=== PATIENT | female | born 1955 | race Caucasian/White ===

== ENCOUNTER 2018-02-02 14:02 | Outpatient (CLI) | payer OTHER, SELFPAY ==
[2018-02-02 14:30] LABS: Abs Immature Grans 0.01 k/cumm (0.0-0.09); Absolute Basophil Count 0.06 k/cumm (0.0-0.2); Absolute Eosinophil Count 0.52 k/cumm (0.0-0.7); Absolute Monocyte Count 0.64 k/cumm (0.11-0.7); Absolute Neutrophil Count 3.57 k/cumm (1.2-6.7); Basophils % 0.9; Eosinophils % 7.8; HCT 36.4 % (36.0-46.0); HGB 12.1 g/dL (12.0-15.5); Immature Grans % 0.1; Lymphocytes % 28.4; Mean Corp. HGB Concentration 33.2 g/dL (32.0-36.0); Mean Corpuscular Hemoglobin 32.7 pg (27.0-33.0); Mean Corpuscular Volume 98.4 fL (80-95); Mean Platelet Volume 9.6 fL (8.0-11.0); Monocytes % 9.6; Neutrophils % 53.2; Platelet Count 294 x1000/uL (130-400); RBC Distribution Width 14.1 % (11.7-14.6)
[2018-02-02 14:49] LABS: ALT 34 U/L (12-78); AST 26 U/L (15-37); Albumin 3.5 g/dL (3.4-5.0); Alkaline Phosphatase 64 U/L (46-116); Anion Gap 6.7 mmol/L (3-11); BUN 23 mg/dL (7-18); Bilirubin, Total 0.3 mg/dL (0.2-1.0); CO2 29.3 mmol/L (21.0-32.0); Calcium 9.1 mg/dL (8.5-10.1); Chloride 104 mmol/L (98-107); Glucose 93 mg/dL (70-100); Potassium 3.9 mmol/L (3.5-5.1); Sodium 140 mmol/L (136-145); Total Protein 7.2 g/dL (6.4-8.2)
== END 2018-02-02 14:22 ==
PROVIDERS: PCP Nurse Practitioner Family; Visit Provider Internal Medicine Medical Oncology
DX: C50.411 Malignant neoplasm of upper-outer quadrant of right female breast (principal); Z17.0 Estrogen receptor positive status [ER+]
CPT/HCPCS: 36415; 80053; 85025

== ENCOUNTER 2018-02-22 01:27 | Outpatient (CLI) | payer OTHER, SELFPAY ==
--- NOTE | 2018-02-22 09:15 | DI.MAMMO_ITS ---
SYMPTOM/DIAGNOSIS: PERSONAL H/O BREAST CA, S/P TREATMENT, ESTROGEN RECEPTOR NEGATIVE C50.411, Z17.1, SCREENING Z12.31 BILATERAL SCREENING MAMMOGRAM: Mammograms were interpreted according to the usual protocol including computer analysis with CAD system, tomosynthesis and C view imaging. Comparison is made with exams from [id number]. The patient is status post right lumpectomy and radiation. The breasts are composed of heterogeneously dense fibroglandular tissue, breast density category C. Scarring is noted in the right breast related to lumpectomy. A biopsy marker clip is noted in the upper outer right breast. There has been an interval decrease in density associated with the area of scarring. No recurrent mass or suspicious calcifications are seen. The left breast shows no masses or suspicious calcifications or change. IMPRESSION: Category 2, negative mammogram with benign findings post lumpectomy scarring. Yearly screening mammography is recommended. SA ASSESSMENT OF FINDINGS: Negative with benign findings. Category 2. Patient will receive a letter notifying them of these results. Bi-RADS category C. The breasts are heterogeneously dense, which may obscure small masses.
== END 2018-02-22 01:47 ==
PROVIDERS: PCP Nurse Practitioner Family; Visit Provider Nurse Practitioner Family
DX: Z12.31 Encounter for screening mammogram for malignant neoplasm of breast (principal); Z85.3 Personal history of malignant neoplasm of breast; Z17.1 Estrogen receptor negative status [ER-]; Z92.3 Personal history of irradiation
CPT/HCPCS: 77063; 77067

== ENCOUNTER 2018-04-16 11:17 | Day surgery (SDC) | payer OTHER, SELFPAY ==
--- NOTE | 2018-04-16 06:06 | W.COLOREPORT ---
Date of service: 04/16/18 Time of Service: 12:50 Colonoscopy Report Date of procedure: 04/16/18 Pre-op diagnosis general: Hx of polyps Post-op diagnosis procedure note: other (polyps) Procedure: Colonoscopy with polypectomy by cold forceps Surgeon: Belen Valderrama Anesthesia proc note operative: MAC (Leo Kasper CRNA/ ASA 2) Estimated blood loss (mL): 5 Pathology: other (ascending polyp) Complications: None Disposition: same day Indications: Mrs. Finn is a pleasant 63 year old female who was seen in the office for a colonoscopy. She has a history of a polyp 5 years ago. Risks, benefits and complications have been reviewed. Complications include but are not limited to bleeding, pain, perforation, missed small lesion/polyp, sore throat, aspiration and adverse reaction to the medications. Questions were entertained and answered to their satisfaction and they wished to proceed. No guarantees were given or implied. Prep: Miralax/Dulcolax Procedure Start Time: 12:50 Procedure End Time: 13:22 Retraction Time: 13 minutes Findings: Ascending colon polyp Procedure Description: After informed consent was obtained the patient was taken to the procedure room and placed in a left decubitous position. Monitors were applied and a time out was done. The patients name, date of , procedure, allergies to medications and metal in their body was reviewed. The patient was then sedated. Once sedated and comfortable a rectal exam was done. External exam was normal. Internal exam revealed a normal sphincter tone and no palpable masses. The scope was then introduced and retro-flexed. No internal hemorrhoids were identified. The scope was then advanced to the cecum with some difficulty due to a tortuous and floppy colon. The TI and appendiceal orifice were identified. The prep was marginal with a lot of liquid stool. The scope was then slowly retracted over 13 minutes back into the rectum. Polyps were removed in the ascending colon. The scope was removed and the patient was woken up and taken back to Same day surgery in stable condition. The patient tolerated the procedure well and there were no immediate complications. Follow up: The patient should follow up in 3-5 years unless they develop changes in bowel habits or other new gastrointestinal complaints.
--- NOTE | 2018-04-16 06:08 | W.PM.DSUDISC ---
Discharge Plan Disposition Patient Disposition: HOME Condition: Good Discharge Details Reason For Visit: Hx of polyps Attending Provider: Belen Valderrama Primary Care Provider: Isabela Oviedo Home Meds and New Rx's Prescriptions: Continued cholecalciferol (vitamin D3) 1,000 UNIT capsule 1,000 unit PO DAILY RF: 0 trazodone 100 MG tablet 50 mg PO HS RF: 0 Loratadine 10 MG TAB.RAPDIS 5 mg PO DAILY RF: 0 clobetasol 15 GM ointment 15 gm Topical PRN Qty: 1 RF: 0 estradiol [Estrace] 0.01 % (0.1 mg/gram) cream 42.5 gm VG twice weekly Qty: 1 RF: 2 melatonin-pyridoxine HCl (B6) 1 EACH tablet 3 mg PO HS PRNRF: 0 Discontinued bisacodyl [Dulcolax (bisacodyl)] 5 mg tablet,delayed release (DR/EC) 5 mg PO ONCE Qty: 4 RF: 0 polyethylene glycol 3350 17 gram/dose powder 255 g PO ONCE Qty: 255 RF: 0 Discharge Instructions Instructions: Colonoscopy (DC), Colorectal Polyps (DC) Additional Instructions: Findings: 1 polyp Follow up: 3-5 years Please call if you develop: fevers >101.5 Nausea or Vomiting Abdominal pain that is not transient DAY SURGERY UNIT POST COLONOSCOPY INSTRUCTIONS 1. Because there will be medication in your system for the next 24 hours, you may feel a little sleepy. Your coordination will be affected. Therefore: a. Do not drive or operate dangerous equipment for 24 hours. b. Do not drink alcohol beverages for 24 hours (not even beer). c. Plan to go home and rest for the day. 2. Generally there are no restrictions on your activity after a day or so has gone by, but you may feel a bit fatigued for a few days. 3 After you arrive home you may have a light meal and return to a normal diet as you can tolerate it without feeling sick to your stomach. 4. After surgery, you may feel pain or discomfort. This should be only transient, but if it persists please contact your doctor. 5. If there are any questions regarding the findings of your procedure, please feel free to contact your doctor. 6. If you are unable to contact your doctor with a problem, contact the hospital at [phone]. 7. Continue all your regular medications unless directed otherwise. I understand the above instructions and have no questions. Signature of Patient or Responsible Adult Escort Date/Time Name of Responsible Adult Escort Signature of Nurse Date/Time Activity:: Activity as Tolerated Diet:: As Tolerated Discharge Orders Discharge Orders: Discharge Order (Routine); Ordered 04/16/18 Ordered By: Belen Valderrama DS: Diagnosis Discharge Diagnosis (1) S/P colonoscopy: Status: Acute (2) Colorectal polyp detected on colonoscopy: Status: Acute
[2018-04-16] MEDS: Lactated Ringers 1,000 ML 80 ML IV (12:00)
--- NOTE | 2018-04-16 13:10 | BOWEL_PTH ---
PATIENT: Kamini Finn LOC: [facility] U#:[id number] AGE/SX: 63/F ROOM: RE04/16/[address]: Belen Valderrama MD : 1955 BED: DIS: 04/16/2018 SPEC #: [id number] RECD: 04/16/18 17:54 STATUS: RAMIREZ REQ #: [id number] VERA: 04/16/18 13:[address]: Belen Valderrama DEPT: Surgical Specimen RECD BY: Ruth Snowden ENTERED: 04/16/18 17:55 SP TYPE: Bowel OTHR DR: Isabela Oviedo Tissues: 1 - BIOPSY BOWEL Procedures: GROSS AND MICRO LEVEL 4 Comments: [id number]
[2018-04-16 13:52] VITALS: BP 104/58; PULSE 61; RESP 16; TEMP 35.8; O2SAT 98
== END 2018-04-16 14:40 | disposition home or self-care (01) ==
LOC: SUR 11:17
PROVIDERS: PCP Nurse Practitioner Family; Visit Provider Surgery
PROC: 0DJD8ZZ Inspection of Lower Intestinal Tract, Via Natural or Artificial Opening Endoscopic (ICD-10-PCS; CPT 45378; principal; 2018-04-16 12:30)
DX: Z12.11 Encounter for screening for malignant neoplasm of colon (principal); Z87.19 Personal history of other diseases of the digestive system; D12.2 Benign neoplasm of ascending colon
CPT/HCPCS: 45380; 88305; J2405

== ENCOUNTER 2018-08-30 07:20 | Outpatient (CLI) | payer OTHER, SELFPAY ==
[2018-08-30 07:48] LABS: Abs Immature Grans 0.01 k/cumm (0.0-0.09); Absolute Basophil Count 0.05 k/cumm (0.0-0.2); Absolute Eosinophil Count 0.36 k/cumm (0.0-0.7); Absolute Lymphocyte Count 1.39 k/cumm (1.2-3.4); Absolute Monocyte Count 0.54 k/cumm (0.11-0.7); Absolute Neutrophil Count 3.29 k/cumm (1.2-6.7); Basophils % 0.9; Eosinophils % 6.4; HCT 38.7 % (36.0-46.0); HGB 12.8 g/dL (12.0-15.5); Immature Grans % 0.2; Lymphocytes % 24.6; Mean Corp. HGB Concentration 33.1 g/dL (32.0-36.0); Mean Corpuscular Hemoglobin 32.2 pg (27.0-33.0); Mean Corpuscular Volume 97.2 fL (80-95); Mean Platelet Volume 9.4 fL (8.0-11.0); Monocytes % 9.6; Neutrophils % 58.3; Platelet Count 315 x1000/uL (130-400); RBC 3.98 m/cumm (4.00-5.20); White Blood Cell Count 5.64 k/cumm (4.4-10.8)
[2018-08-30 08:01] LABS: ALT 33 U/L (12-78); AST 26 U/L (15-37); Albumin 3.6 g/dL (3.4-5.0); Alkaline Phosphatase 70 U/L (46-116); Anion Gap 8.3 mmol/L (3-11); BUN 19 mg/dL (7-18); Bilirubin, Total 0.3 mg/dL (0.2-1.0); CO2 27.7 mmol/L (21.0-32.0); Calcium 9.3 mg/dL (8.5-10.1); Chloride 105 mmol/L (98-107); Glucose 89 mg/dL (70-100); Potassium 4.2 mmol/L (3.5-5.1); Sodium 141 mmol/L (136-145); Total Protein 7.4 g/dL (6.4-8.2)
== END 2018-08-30 07:40 ==
PROVIDERS: PCP Nurse Practitioner Family
DX: C50.411 Malignant neoplasm of upper-outer quadrant of right female breast (principal); Z17.1 Estrogen receptor negative status [ER-]
CPT/HCPCS: 36415; 80053; 85025

== ENCOUNTER 2018-10-31 09:06 | Outpatient (REF) | payer OTHER, SELFPAY ==
--- NOTE | 2018-10-31 08:30 | PAPFT_PTH ---
PATIENT: Kamini Finn LOC: [facility] U#:[id number] AGE/SX: 63/F ROOM: RE10/31/[address]: Gissel Welsh NP : 1955 BED: DIS: 10/31/2018 SPEC #: [id number] RECD: 10/31/18 12:49 STATUS: RAMIREZ REEvette #: [id number] VERA: 10/31/18 08:[address]: Gissel Welsh NP DEPT: [facility] Cytology RECD BY: Ruth Snowden ENTERED: 10/31/18 12:50 SP TYPE: PAPFT OTHR DR: Isabela Oviedo Tissues: 1 - CX/ENDOCX FOR PAP SMEARS Procedures: PAP THIN PREP/UVM Screening HPV DNA PROBE Comments: [id number]
== END 2018-10-31 09:26 ==
LOC: LBN 09:06
PROVIDERS: PCP Nurse Practitioner Family; Visit Provider Nurse Practitioner Women's Health
DX: Z12.4 Encounter for screening for malignant neoplasm of cervix (principal); Z11.51 Encounter for screening for human papillomavirus (HPV)
CPT/HCPCS: 88142; 87624

== ENCOUNTER 2019-03-29 00:59 | Outpatient (CLI) | payer OTHER, SELFPAY ==
--- NOTE | 2019-03-29 14:22 | DI.MAMMO_ITS ---
EXAM: MG MAMMO SCREENING 60 MIN DUR CLINICAL HISTORY: SCREENING, PERSONAL H/O BREAST CA, C50.911, C50.411, Z17.1 TECHNIQUE: Mammograms were interpreted according to the usual protocol including computer analysis w [employer] CAD system, tomosynthesis and C-view imaging. COMPARISON: Current examination is compared with previous examinations including February 2018. FINDINGS: The breasts are heterogeneously dense. Note is made of a previous right upper outer quadrant lumpect brooks for breast carcinoma. No new mass or clumped microcalcification identified in either breast. Cu rrent examination is compared with previous examinations including February 2018 and there has been n o gross interval change in appearance in comparison with the previous studies. IMPRESSION: No specific evidence of malignancy at this time. Routine screening examinations are suggested at yea rly intervals due to the history of breast carcinoma. Category 1, breast density category C. BI-RADS Cat 1 - Negative Breast Density - Category C - Heterogeneously dense
== END 2019-03-29 01:19 ==
PROVIDERS: PCP Nurse Practitioner Family; Visit Provider Nurse Practitioner Women's Health
DX: Z12.31 Encounter for screening mammogram for malignant neoplasm of breast (principal); Z85.3 Personal history of malignant neoplasm of breast; Z17.1 Estrogen receptor negative status [ER-]; Z98.890 Other specified postprocedural states
CPT/HCPCS: 77063; 77067

== ENCOUNTER 2019-05-04 18:06 | Emergency (ER) | payer OTHER, SELFPAY ==
[2019-05-04 18:10] VITALS: BP 121/81; PULSE 65; RESP 16; TEMP 36.8; O2SAT 100
--- NOTE | 2019-05-04 18:15 | DI.CT_ITS ---
EXAM: CT HEAD AND CERVICAL SPINE WO CLINICAL HISTORY: HIT BACK OF HEAD ON STEP, HEADACHE, DIZZY. TECHNIQUE: Imaging Protocol: Axial computed tomography images with coronal and sagittal reformatted images were created and reviewed Noncontrast COMPARISON: No exams were available for comparison FINDINGS: Head CT Ventricles and Extra axial spaces: Normal in size and morphology for the patient's age. Hemorrhage: None. Cerebral parenchyma: Normal. Midline shift: None. Brainstem/Cerebellum: Normal. Calvarium: Normal. Visualized Paranasal sinuses/Mastoids: Clear. IMPRESSION: No acute abnormality. FINDINGS: Cervical Spine CT BONES: Vertebral body heights are maintained. Intervertebral disc spaces are normal. Alignment is nor mal. There is no evidence of acute fracture. There is a mildly increased density in the right upper lobe, which could represent scarring. SOFT TISSUES: No paraspinal hematoma. The airway appears intact. Degenerative disc changes and facet degenerative changes are seen . IMPRESSION: Degenerative changes, no acute abnormality. RADIATION DOSE DELIVERED: DATA REPOSITORY: All CT scans at this facility are submitted to the National Radiology Data Registry (NRDR) Dose Index Registry (DIR) with the [employer] (A[employer]). RADIATION OPTIMIZATION: All CT scans at this facility use at least one of these dose optimization te chniques: automated exposure control; mA and/or kV adjustment per patient size (includes targeted exa ms where dose is matched to clinical indication); or iterative reconstruction.
--- NOTE | 2019-05-04 18:17 | W.ED.GENAD ---
Discharge Plan Disposition Patient Disposition: HOME Condition: Stable Discharge Details Chief Complaint: HeadInjury Clinical Impression: Scalp hematoma, Closed head injury without loss of consciousness Primary Care Provider: Isabela Oviedo ED Provider: Jordyn Mitchell Home Meds and New Rx's Prescriptions: Continued clobetasol 0.05 % cream 1 applic TP .COMPLEX Qty: 30 RF: 3 estradiol [Estrace] 0.01 % (0.1 mg/gram) cream 1 gm VG QWEEK Qty: 42.5 RF: 5 cholecalciferol (vitamin D3) 1,000 UNIT capsule 1,000 unit PO DAILY RF: 0 trazodone 100 MG tablet 50 mg PO HS RF: 0 Loratadine 10 MG TAB.RAPDIS 5 mg PO DAILY RF: 0 melatonin-pyridoxine HCl (B6) 1 EACH tablet 3 mg PO HS PRNRF: 0 Discharge Instructions Instructions: Head Injury (ED), Post Concussion Syndrome (ED), Hematoma (ED) Additional Instructions: Drink plenty of fluids and get plenty of rest. Alternate tylenol and motrin as needed and directed for pain. Limit screen time over the next few days including laptop, phone and TV as this may make headaches worse. Follow up with your primary care doctor in 1 week as needed. Return to the emergency department with any worsening or new concerning symptoms such as worsening headaches, vomiting, dizziness, blurry vision or any other concerns. Discharge Data Discharge Physician: Jordyn Mitchell Medical Decision Making 64-year-old female presents after mechanical fall with head injury. Denies LOC or vomiting. She had a brief period of slurred speech and tongue numbness which resolved. She has a posterior occipital hematoma but no open wounds. No midline spinal tenderness. No focal deficits. Discussed at length with patient and that considering patient's initial neurological symptoms and persistent headache, would recommend CT imaging and patient's states this is why he brought her here today. Will refer for CT head and cervical spine. CT imaging negative for acute findings. Incidentally was noted pulmonary interstitial prominence right apex which is thought to be possibly chronic fibrosis although edema or viral pneumonia cannot be excluded in appropriate setting. Patient has no history of pulmonary fibrosis or chronic lung disease. She has no complaint of fever, cough or shortness of breath so do not suspect an acute lung process. Discussed that this could be scarring from previous infection. She was advised to follow-up with her primary care doctor regarding this for CT chest if she develops any symptoms. Patient was informed to avoid excessive screen time. Advised to follow up with the primary care doctor for re-evaluation. Usual and customary return precautions given prior to discharge. Medical Records Medical records reviewed: Yes I reviewed the patient's medical records. Imaging Data Radiologic Study: Radiologist's impression: CT Head Without Contrast Exam date and time: 05/04/2019 6:42 PM Age: 64 years old Clinical indication: Dizziness and other: Hit back of head on step, headache; Patient HX: Hit back of head on step, headache, dizzy TECHNIQUE: Imaging protocol: Computed tomography of the head without contrast. COMPARISON: No relevant prior studies available. FINDINGS: Brain: The brain parenchyma and CSF spaces are unremarkable. No intracranial bleed, midline shift, or mass effect. Ventricles: Normal. No ventriculomegaly. Bones/joints: Unremarkable. No acute fracture. Sinuses: Visualized sinuses are unremarkable. No fluid levels. Mastoid air cells: Visualized mastoid air cells are well aerated. Soft tissues: There is mild occipital region scalp hematoma/soft tissue contusion. IMPRESSION: No acute intracranial abnormality. Small soft tissue contusion/occipital scalp hematoma noted. CT Cervical Spine Without Contrast Exam date and time: 05/04/2019 6:42 PM Age: 64 years old Clinical indication: Dizziness and other: Hit back of head on step, headache; Patient HX: Hit back of head on step, headache, dizzy TECHNIQUE: Imaging protocol: Computed tomography images of the cervical spine without contrast. COMPARISON: No relevant prior studies available. FINDINGS: Vertebrae: There is mild reversal of the normal lordotic curvature centered at C4. This appears to be secondary to degenerative disc disease. No fracture is seen. Discs/Spinal canal/Neural foramina: There is disc space narrowing and vertebral endplate osteophyte formation consistent with degenerative disc disease which is mild to moderate at C5-C6 and C6-C7 and a mild at C4-C5. Soft tissues: Unremarkable. Lungs: There is mild interstitial prominence in the right pulmonary apex. IMPRESSION: No fracture or other acute findings. [id number] degenerative disc disease. Pulmonary interstitial prominence right apex. This most likely represents chronic fibrosis although edema or viral pneumonia cannot be excluded in the appropriate clinical setting. HPI General Mode of arrival: ambulatory. Date/Time Provider Initiated Documentation: 05/04/19 18:07. Limitations to Documentation: no limitations. Information obtained by: patient. HPI Narrative: Patient is a 64-year-old female who presents to the ED after fall with head injury. Patient states she was walking in her boots without tread when she slipped and hit the back of her head on a wooden step. She states she initially felt dazed, had slurred speech, tongue numbness which lasted approximately under 1 minute and then resolved. Patient states she had some dizziness for short time afterwards was then resolved. She admits to headache of 6/10. She states the headache radiates from the back of her head to the front. She admits to some mild upper neck pain that is worse when she bends her head forward and extends to the back of her head. She has not taken any medication for pain. She denies any blurry vision, nausea, vomiting or any other injuries. She does not take any anticoagulation. Related Data Home Medications Medication Instructions Recorded Confirmed cholecalciferol (vitamin D3) 1,000 unit PO DAILY 12/04/12 05/04/19 trazodone 50 mg PO HS 06/11/15 05/04/19 Loratadine 5 mg PO DAILY 10/21/16 05/04/19 melatonin-pyridoxine HCl (B6) 3 mg PO HS PRN 10/28/16 05/04/19 clobetasol 0.05 % topical cream 1 applic TP .COMPLEX #30 gm 10/31/18 05/04/19 estradiol 1 gm VG QWEEK #42.5 gm 10/31/18 05/04/19 Previous Rx's Medication Instructions Recorded clobetasol 0.05 % topical cream 1 applic TP .COMPLEX #30 gm 10/31/18 estradiol 1 gm VG QWEEK #42.5 gm 10/31/18 Allergies Allergy/AdvReac Type Severity Reaction Status Date / Time No Known Drug Allergies Allergy Unverified 05/04/19 18:15 General Stated Complaint: HeadInjury MARILEE: 3 Review of Systems All systems reviewed & are unremarkable except as noted in HPI and below Constitutional Constitutional: Reports as per HPI, Denies chills, Denies fever(s) and Reports headache(s) Eyes Eyes: Denies blurry vision ENT Ears, Nose, Mouth, and Throat: Reports dizziness, Reports headache(s), Denies sore throat and Denies throat swelling Cardiovascular Cardiovascular: Denies chest pain and Denies dyspnea Respiratory Respiratory: Denies cough and Denies dyspnea Gastrointestinal Gastrointestinal: Denies abdominal pain, Denies diarrhea and Denies vomiting Genitourinary Genitourinary: Denies hematuria and Denies dysuria Musculoskeletal Musculoskeletal: Denies back pain and Denies numbness Integumentary/Breasts Skin/Breast: Denies lesions and Denies rash Neurologic Neurologic: Reports dizziness, Reports headache(s), Denies focal weakness and Denies numbness Allergic/Immunologic Allergic/Immunologic: Denies throat swelling [facility] Medical History 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 Chronic rhinitis Colorectal polyp detected on colonoscopy (Acute ~04/16/18) Insomnia Lichen sclerosus et atrophicus Vaginal atrophy Surgical History Breast, Lumpectomy (09/23/15) Repair, Rotator Cuff L shoulder 2009 Family History Other Heart disease Personal history of malignant neoplasm Social History Smoking/Tobacco Use Status: Never Alcohol Intake: current Alcohol Intake frequency: a few times a week Alcohol type: wine Drug use: Never Substance use type: does not use Do you feel safe at home: Yes Do you feel safe in your relationship?: Yes History History 2 Para 2 Hx # Term Pregnancies Multiple births Hx # Pregnancies Ectopic pregnancies AB induced Hx Number of Living Children AB spontaneous Exam Const General: cooperative, healthy appearing and no acute distress [facility] Head: normal to inspection and no palpable skull fracture Head images: 1. Hematoma to occipital region. No open wounds. Ears: hearing grossly normal bilaterally, external ears normal and TM's normal bilaterally General nose exam: external nose normal Face and sinus: normal facial exam Mouth: oral mucosae normal Eyes General: appearance normal, both eyes and all related structures Neck Neck: normal visual inspection Resp Effort & Inspection: normal respiratory effort and able to speak in complete sentences Cardio Rate: regular rate Skin General skin exam: no rashes or lesions noted Neuro General: alert, awake, oriented x3, gait normal and moves all extremities Cranial Nerves: CN's II-XI intact bilaterally Motor: muscle tone normal throughout and strength 5/5 throughout Extrem General: normal to inspection and full ROM Psych Appearance: grossly normal Affect: normal affect Course Vital Signs Vital signs: Vital Signs Temperature 98.2 F 05/04/19 18:10 Pulse 65 05/04/19 18:10 Respiratory Rate 16 05/04/19 18:10 Blood Pressure 121/81 05/04/19 18:10 Pulse Oximetry 100 05/04/19 18:10 Temperature 98.2 F 05/04/19 18:10 Pulse 65 05/04/19 18:10 Respiratory Rate 16 05/04/19 18:10 Respiratory Effort Non-Labored 05/04/19 18:12 Blood Pressure 121/81 05/04/19 18:10 Pulse Oximetry 100 05/04/19 18:10 Oxygen Delivery Method Room Air 05/04/19 18:10 Oxygen Flow Rate 0 05/04/19 18:10 Pain Level 6 05/04/19 18:10
[2019-05-04] MEDS: Acetaminophen 500 MG TAB 1000 MG PO (18:33)
--- NOTE | 2019-05-04 19:16 | DI.VRAD_ITS ---
PROCEDURE INFORMATION: Exam: CT Head Without Contrast Exam date and time: 05/04/2019 6:42 PM Age: 64 years old Clinical indication: Dizziness and other: Hit back of head on step, headache; Patient HX: Hit back of head on step, headache, dizzy TECHNIQUE: Imaging protocol: Computed tomography of the head without contrast. COMPARISON: No relevant prior studies available. FINDINGS: Brain: The brain parenchyma and CSF spaces are unremarkable. No intracranial bleed, midline shift, or mass effect. Ventricles: Normal. No ventriculomegaly. Bones/joints: Unremarkable. No acute fracture. Sinuses: Visualized sinuses are unremarkable. No fluid levels. Mastoid air cells: Visualized mastoid air cells are well aerated. Soft tissues: There is mild occipital region scalp hematoma/soft tissue contusion. IMPRESSION: No acute intracranial abnormality. Small soft tissue contusion/occipital scalp hematoma noted. PROCEDURE INFORMATION: Exam: CT Cervical Spine Without Contrast Exam date and time: 05/04/2019 6:42 PM Age: 64 years old Clinical indication: Dizziness and other: Hit back of head on step, headache; Patient HX: Hit back of head on step, headache, dizzy TECHNIQUE: Imaging protocol: Computed tomography images of the cervical spine without contrast. COMPARISON: No relevant prior studies available. FINDINGS: Vertebrae: There is mild reversal of the normal lordotic curvature centered at C4. This appears to be secondary to degenerative disc disease. No fracture is seen. Discs/Spinal canal/Neural foramina: There is disc space narrowing and vertebral endplate osteophyte formation consistent with degenerative disc disease which is mild to moderate at C5-C6 and C6-C7 and a mild at C4-C5. Soft tissues: Unremarkable. Lungs: There is mild interstitial prominence in the right pulmonary apex. IMPRESSION: No fracture or other acute findings. [id number]-ic-mcynsndg degenerative disc disease. Pulmonary interstitial prominence right apex. This most likely represents chronic fibrosis although edema or viral pneumonia cannot be excluded in the appropriate clinical setting. Dictated and Authenticated by: Casa Holguin MD. Ordering:MILAGROS Cobb MD
[2019-05-04 19:44] VITALS: BP 123/71; PULSE 63; RESP 16; TEMP 36.9; O2SAT 97
== END 2019-05-04 19:45 | disposition home or self-care (01) ==
PROVIDERS: Emergency Provider Physician Assistant; PCP Nurse Practitioner Family
DX: S09.8XXA Other specified injuries of head, initial encounter (principal); S00.03XA Contusion of scalp, initial encounter; W01.0XXA Fall on same level from slipping, tripping and stumbling without subsequent striking against object, initial encounter
CPT/HCPCS: 99284; 70450; 72125

== ENCOUNTER 2019-09-13 03:27 | Outpatient (CLI) | payer OTHER, SELFPAY ==
[2019-09-13 16:51] LABS: Abs Immature Grans 0.01 k/cumm (0.0-0.09); Absolute Basophil Count 0.03 k/cumm (0.0-0.2); Absolute Eosinophil Count 0.28 k/cumm (0.0-0.7); Absolute Lymphocyte Count 1.61 k/cumm (1.2-3.4); Absolute Monocyte Count 0.58 k/cumm (0.11-0.7); Basophils % 0.5; Eosinophils % 4.4; HCT 36.7 % (36.0-46.0); HGB 12.3 g/dL (12.0-15.5); Immature Grans % 0.2 %; Lymphocytes % 25.5; Mean Corp. HGB Concentration 33.5 g/dL (32.0-36.0); Mean Corpuscular Volume 95.6 fL (80-95); Mean Platelet Volume 9.7 fL (8.0-11.0); Monocytes % 9.2; Neutrophils % 60.2; Platelet Count 318 x1000/uL (130-400); RBC 3.84 m/cumm (4.00-5.20); RBC Distribution Width 13.9 % (11.7-14.6); White Blood Cell Count 6.31 k/cumm (4.4-10.8)
[2019-09-13 18:34] LABS: ALT 35 U/L (14-59); AST 31 U/L (15-37); Albumin 3.9 g/dL (3.4-5.0); Alkaline Phosphatase 58 U/L (46-116); BUN 24 mg/dL (7-18); Bilirubin, Total 0.3 mg/dL (0.2-1.0); CREATININE 0.71 mg/dL (0.55-1.02); Calcium 9.4 mg/dL (8.5-10.1); Chloride 105 mmol/L (98-107); Glucose 108 mg/dL (74-106); Potassium 4.4 mmol/L (3.5-5.1); Sodium 141 mmol/L (136-145); Total Protein 7.2 g/dL (6.4-8.2)
== END 2019-09-13 03:47 ==
PROVIDERS: PCP Nurse Practitioner Family; Visit Provider Internal Medicine
DX: Z85.3 Personal history of malignant neoplasm of breast (principal)
CPT/HCPCS: 36415; 80053; 85025

== ENCOUNTER 2020-03-30 01:55 | Outpatient (CLI) | payer MEDICARE, SELFPAY ==
--- NOTE | 2020-03-30 07:00 | DI.MAMMO_ITS ---
EXAM: MG MAMMO SCREENING 60 MIN DUR CLINICAL HISTORY: breast cancer screening, personal h/o breast ca, c50.411,z17.1. TECHNIQUE: Bilateral full field digital CC and MLO mammographic images were obtained with 3D tomosyn thesis and utilizing computer aided detection (CAD). COMPARISON: Prior mammograms dating back to 2011, the most recent being 03/25. Patient underwent lum pectomy in the right breast 2015. FINDINGS: Again noted is stable appearance of the right breast lumpectomy site with dystrophic calcification an d scarring at this level again noted. There also stable appearing microcalcifications posterior to t he lumpectomy site. Also a biopsy marker seen more laterally without significant findings in the imm ediate vicinity of this marker. There are no spiculated masses nor malignant appearing microcalcification groups. No new significant radiograph findings in the opposite-left breast. IMPRESSION: Stable appearance of the right breast lumpectomy site. No radiographic evidence of malignancy in either breast. BI-RADS Category 2 - Benign Findings Breast Density - Category C - Heterogeneously dense Breast density Category C or D implies that the patient has dense breast tissue. Dense breast tissue can make it harder to find cancer on a mammogram. Dense breast tissue is also associated with an incr eased risk of breast cancer. This information about the result of the mammogram report was provided to the patient to raise their awareness. Use this report when you speak with the patient about their risks for breast cancer, which includes their family history. At that time, you may recommend additional screening tests (Ultrasoun d or MRI) as these tests may add significant information. A negative radiographic report should not delay biopsy if a dominant or clinically suspicious mass is present. Up to ten percent of cancers are not identified on mammography. A negative report may reinforce clinical impression. Adenosis and dense breasts may obscure an underlying neoplasm. False positive reports average 6 to 10%. Patient will receive a letter notifying them of these results.
== END 2020-03-30 02:15 ==
PROVIDERS: PCP Nurse Practitioner Family; Visit Provider Nurse Practitioner Women's Health
DX: Z85.3 Personal history of malignant neoplasm of breast (principal); Z12.31 Encounter for screening mammogram for malignant neoplasm of breast
CPT/HCPCS: 77063; 77067

== ENCOUNTER 2020-04-09 00:48 | Outpatient (CLI) | payer MEDICARE, SELFPAY ==
--- NOTE | 2020-04-09 | DI.DEXA_ITS ---
EXAM: XR DEXA BONE DENSITY W/WO HAI CLINICAL HISTORY: SCREENING FOR OSTEOPOROSIS IN POSTMENOPAUSAL WOMAN,Z78.0 TECHNIQUE: COMPARISON: Comparison examination is 01/07/2014. FINDINGS: Lateral Spine Image: Unremarkable. No compression deformities identified. Left hip: Total T-Score: -1.2. This compares to -0.4 on the prior examination. Total Z-Score: 0.1 T- and Z-scores: Findings are consistent with osteopenia. Lumbar Spine: Total T-Score: -1.0. This compares to -0.8 on the prior examination. Total Z-Score: 0.9 T- and Z-scores: Within normal limits. IMPRESSION: No evidence of osteoporosis.
== END 2020-04-09 00:49 | disposition home or self-care (01) ==
PROVIDERS: PCP Nurse Practitioner Family; Visit Provider Nurse Practitioner Family
DX: Z78.0 Asymptomatic menopausal state (principal)
CPT/HCPCS: 77080

== ENCOUNTER 2020-05-04 13:47 | Outpatient (REF) | payer MEDICARE, SELFPAY ==
--- NOTE | 2020-05-04 13:15 | SKI_PTH ---
PATIENT: Kamini Finn LOC: [facility] U#:[id number] AGE/SX: 65/F ROOM: RE05/04/[address]: Isabela Oviedo : 1955 BED: DIS: 05/04/2020 SPEC #: [id number] RECD: 05/05/20 11:14 STATUS: RAMIREZ ALFONSO #: [id number] VERA: 05/04/20 13:[address]: Isabela Oviedo DEPT: Surgical Specimen RECD BY: Ruth Snowden Tissues: 1 - SKIN BIOPSY(SHAVE/PUNCH) Procedures: SKIN LEVEL 4 Comments: [id number]
== END 2020-05-04 13:48 | disposition home or self-care (01) ==
LOC: NCHCN 13:47
PROVIDERS: PCP Nurse Practitioner Family; Visit Provider Nurse Practitioner Family
DX: L82.1 Other seborrheic keratosis (principal)
CPT/HCPCS: 88305

== ENCOUNTER 2021-03-31 00:40 | Outpatient (CLI) | payer MEDICARE, SELFPAY ==
--- NOTE | 2021-03-31 13:56 | DI.MAMMO_ITS ---
Exam(s) MG MAMMO SCREENING 60 MIN DUR EXAM: MG MAMMO SCREENING 60 MIN DUR CLINICAL HISTORY: SCREENING, PERSONAL H/O BREAST CA, C50.919, C50.411. TECHNIQUE: Bilateral full field digital CC and MLO mammographic images were obtained with 3D tomosyn thesis and utilizing computer aided detection (CAD). COMPARISON: Prior mammograms were reviewed, the most recent being March 2020. FINDINGS: There is continued stable appearance of the right breast lumpectomy site. No new significant right b reast findings. Also no findings in the immediate vicinity of the biopsy marker clip located lateral ly in the right breast. No new left breast findings. IMPRESSION: Stable appearance of the right breast lumpectomy site. No radiographic evidence of malignancy in eit her breast. BI-RADS Category 2 - Benign Findings Breast Density - Category C - Heterogeneously dense Breast density Category C or D implies that the patient has dense breast tissue. Dense breast tissue can make it harder to find cancer on a mammogram. Dense breast tissue is also associated with an incr eased risk of breast cancer. This information about the result of the mammogram report was provided to the patient to raise their awareness. Use this report when you speak with the patient about their risks for breast cancer, which includes their family history. At that time, you may recommend additional screening tests (Ultrasoun d or MRI) as these tests may add significant information. A negative radiographic report should not delay biopsy if a dominant or clinically suspicious mass is present. Up to ten percent of cancers are not identified on mammography. A negative report may reinforce clinical impression. Adenosis and dense breasts may obscure an underlying neoplasm. False positive reports average 6 to 10%. Patient will receive a letter notifying them of these results.
== END 2021-03-31 01:00 ==
PROVIDERS: PCP Nurse Practitioner Family; Visit Provider Nurse Practitioner Family
DX: Z12.31 Encounter for screening mammogram for malignant neoplasm of breast (principal); Z85.3 Personal history of malignant neoplasm of breast; Z98.890 Other specified postprocedural states
CPT/HCPCS: 77063; 77067

== ENCOUNTER 2021-05-11 15:59 | Outpatient (REF) | payer MEDICARE, SELFPAY ==
[2021-05-11 15:34] LABS: Calculated LDL 167 mg/dL (<100); Cholesterol 286 mg/dL (<200); HDL Cholesterol 108 mg/dL (40-60); Triglyceride 56 mg/dL (<150)
== END 2021-05-11 16:00 | disposition home or self-care (01) ==
LOC: NCHCN 15:59
PROVIDERS: PCP Nurse Practitioner Family; Visit Provider Nurse Practitioner Family
DX: Z00.00 Encounter for general adult medical examination without abnormal findings (principal); G47.00 Insomnia, unspecified; M85.88 Other specified disorders of bone density and structure, other site; D12.6 Benign neoplasm of colon, unspecified
CPT/HCPCS: 80061

== ENCOUNTER 2021-08-31 02:35 | Outpatient (CLI) | payer MEDICARE, SELFPAY ==
[2021-08-31 13:10] LABS: Abs Immature Grans 0.01 10^3/uL (0.0-0.06); Absolute Basophil Count 0.05 10^3/uL (0.0-0.2); Absolute Eosinophil Count 0.23 10^3/uL (0.0-0.7); Absolute Lymphocyte Count 1.57 10^3/uL (1.2-3.4); Absolute Monocyte Count 0.56 10^3/uL (0.1-0.8); Basophils % 0.7; Eosinophils % 3.3; HGB 12.2 g/dL (11.2-15.7); Immature Grans % 0.1; Lymphocytes % 22.4; MCH 32.1 pg (27.0-33.0); MCV 97 fL (80-95); MPV 9.6 fL (8.0-11.0); Neutrophils % 65.5; Platelet Count 297 10^3/uL (130-400); RDW 13.4 % (11.7-14.6); RDW-SD 48.5 fL; WBC 7.02 10^3/uL (4.4-10.8)
[2021-08-31 13:30] LABS: ALT 25 U/L (14-59); AST 20 U/L (15-37); Albumin 3.8 g/dL (3.4-5.0); Alkaline Phosphatase 62 U/L (46-116); Anion Gap 6.5 mmol/L (3-11); BUN 20 mg/dL (7-18); Bilirubin, Total 0.4 mg/dL (0.2-1.0); CO2 27.5 mmol/L (21.0-32.0); CREATININE 0.7 mg/dL (0.55-1.02); Calcium 9.1 mg/dL (8.5-10.1); Chloride 104 mmol/L (98-107); Glucose 102 mg/dL (74-106); Sodium 138 mmol/L (136-145); Total Protein 7.5 g/dL (6.4-8.2)
== END 2021-08-31 02:36 | disposition home or self-care (01) ==
LOC: LBO 02:35
PROVIDERS: PCP Nurse Practitioner Family; Visit Provider Nurse Practitioner Adult Health
DX: Z85.3 Personal history of malignant neoplasm of breast (principal)
CPT/HCPCS: 36415; 80053; 85025

== ENCOUNTER → 2022-04-28 09:48 | Outpatient (BNVA) | payer MEDICARE, SELFPAY | PROVIDERS: PCP Nurse Practitioner Family; Referring Provider Nurse Practitioner Family; Visit Provider Physical Therapy Assistant | DX: Z12.11 Encounter for screening for malignant neoplasm of colon (principal); Z86.010 Personal history of colon polyps ==

== ENCOUNTER 2022-05-19 11:09 | Day surgery (SDC) | payer MEDICARE, SELFPAY ==
--- NOTE | 2022-05-18 20:29 | W.PM.DSUDISC ---
Date of service: 05/19/22 Time of Service: 15:01 Discharge Plan Disposition Condition: Good Discharge Details Reason For Visit: Screening colonoscopy Attending Provider: Kailash Hall Primary Care Provider: Isabela Oviedo Home Meds and New Rx's Prescriptions: Continued clobetasol 0.05 % cream 1 applic TP .COMPLEX Qty: 30 3RF Rx Instructions: Apply to vulva twice a week as needed for itching bisacodyl [Dulcolax (bisacodyl)] 5 mg tablet,delayed release (DR/EC) 5 mg PO ONCE Qty: 4 0RF Rx Instructions: Take according to provider's instructions for colonoscopy prep. polyethylene glycol 3350 17 gram/dose powder 17 g PO ONCE Qty: 238 0RF Rx Instructions: To be taken as directed by prescriber's office for colonoscopy prep. cholecalciferol (vitamin D3) 1,000 UNIT capsule 1,000 unit PO DAILY trazodone 100 MG tablet 50 mg PO HS Loratadine 10 MG TAB.RAPDIS 5 mg PO DAILY estradiol 0.01 % (0.1 mg/gram) cream 1 appful vaginal .COMPLEX Qty: 42.5 6RF Rx Instructions: 1 gram at bedtime twice weekly. Discharge Instructions Additional Instructions: Amanda, we were able to complete your colonoscopy today without much difficulty. The quality of your prep was very good. I did not see any evidence of polyps or tumors. Based on the pathology from your previous polyp (tubulovillous adenoma) I recommend that you have another colonoscopy in 5 years. 1. If tolerated, consume a soft, low fiber diet for 1-2 days. 2[address] Do not drive, drink alcohol, operate machinery, make critical decisions, or do activities that require coordination or balance for 24 hours. 3. Because air was put into your colon during the procedure, expelling air from your rectum (passing gas or farting) is normal. 4. You may not have a bowel movement for 1-3 days because of the colonoscopy prep. This is normal. 5. Go directly to the emergency room if you notice any of the following: Develop chills (warm to touch), or if you have a thermometer and your temperature is above 101 Difficulty breathing or difficultly swallowing Persistent vomiting Severe abdominal pain, other than gas cramps Severe chest pain Black, tarry stools Any bleeding ? exceeding one tablespoon 6. Call your physician if the site where your intravenous was started becomes red, swollen, painful, and warm to touch. 7. Your physician has reviewed your pre-procedure medications. Please continue to take those medications as previously ordered. You will be given specific information/education regarding any changes to your medications before leaving. Activity:: Activity as Tolerated Activity:: Activity as Tolerated DS: Diagnosis Discharge Diagnosis (1) Screening for colon cancer: Status: Acute Asessment and Plan: Normal colonoscopy today. 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
--- NOTE | 2022-05-18 20:32 | W.COLOREPORT ---
Date of service: 05/19/22 Time of Service: 14:57 Colonoscopy Report Date of procedure: 05/19/22 Pre-op diagnosis general: Screening colonoscopy Post-op diagnosis procedure note: other (Normal colonoscopy) Procedure: Colonoscopy Surgeon: Kailash Hall Anesthesia Type: General:No Airway Estimated blood loss (mL): 0 Pathology: none sent Complications: None Disposition: same day Indications: Maura is a 67-year-old woman who has had a previous screening colonoscopy that demonstrated a tubulovillous adenoma. She is here following up for her next surveillance screening colonoscopy Prep: Miralax/Dulcolax Procedure Start Time: 14:09 Procedure End Time: 14:37 Retraction Time: 16 Findings: Normal colonoscopy Procedure Description: After the induction of monitored anesthetic care, and with the patient in left lateral decubitus position, I began by performing an external anorectal exam.? Perineum and skin were normal, as was the anal verge.? There was no evidence of external hemorrhoids.? Next, I performed a digital rectal exam.? I did not appreciate any abnormal findings.? Next, I advanced a colonoscope into the rectal vault.? I performed retroflexion.? This was normal.? Using insufflation, I then advanced the colonoscope beyond the rectal folds and into the sigmoid colon before advancing towards the cecum.? The quality of the prep was adequate.? Navigation around the hepatic flexure was slightly challenging, but with gentle abdominal pressure, the scope was advanced beyond into the ascending colon. the scope was noted to be in the cecum by identification of the ileocecal valve and appendiceal orifice.? Capturing an image of the appendiceal orifice was challenging because of position. I then began withdrawing the colonoscope using repeated irrigation as necessary for full evaluation of the colonic mucosa. ?Once the scope was withdrawn to the level of the rectum, great care was taken to examine portions of the rectal folds.? I did not see any evidence of tumors polyps or other pathology. Finally, the scope was withdrawn and the patient was brought to the same-day surgery recovery unit as the anesthetic wore off. ?The findings and instructions were shared with the patient prior to discharge.
[2022-05-19 13:00] VITALS: BP 120/68; PULSE 61; RESP 16; TEMP 36.5; O2SAT 99
--- NOTE | 2022-05-19 13:51 | W.ANESPRE ---
General Info Date of Service Date Performed: 05/19/22 Height: 5 ft 4 in Weight: 54.431 kg Body Mass Index (BMI): 20.5 Surgical Procedure: Operation Date: 05/19/22 14:50 Proposed Procedure Side Surgeon nelson Hall MD Meds Allergies and Home Medications Allergies Allergy/AdvReac Type Severity Reaction Status Date / Time No Known Drug Allergies Allergy Unverified 05/19/22 12:56 Home Medication Medication Instructions Recorded cholecalciferol (vitamin D3) 25 1,000 unit PO DAILY 12/04/12 mcg (1,000 unit) capsule trazodone 100 mg tablet 50 mg PO HS 06/11/15 Loratadine 5 mg PO DAILY 10/21/16 clobetasol 0.05 % topical cream 1 applic topical .COMPLEX #30 grams 03/08/21 estradiol 0.01% (0.1 mg/gram) 1 appful vaginal .COMPLEX #42.5 05/20/21 vaginal cream grams bisacodyl 5 mg tablet,delayed 5 mg PO ONCE #4 tabs 04/28/22 release (Dulcolax (bisacodyl)) polyethylene glycol 3350 17 17 g PO ONCE #238 grams 04/28/22 gram/dose oral powder Current Visit Medications: Current Medications Generic Name Dose Route Start Last Admin Trade Name Freq PRN Reason Stop Dose Admin Hyoscyamine Sulfate 0.125 mg 05/18/22 20:33 Hyoscyamine 0.125 Mg Sl/Oral/Chew SL DIRECTED PRN Ringer's Solution 1,000 mls @ 80 mls/hr 05/19/22 06:00 IV 06/17/22 23:59 [facility] IV Miscellaneous Supplies 1 each 05/19/22 06:00 Iv Access IV 06/17/22 23:59 DIRECTED ANTHONY Ondansetron HCl 4 mg 05/18/22 20:33 Ondansetron 4 Mg/2 Ml Vial IVP Q4H PRN PRN Nausea / Vomiting Sodium Chloride 0 ml 05/19/22 06:00 Normal Saline Flush 10 Ml Syr IV 06/17/22 23:59 PRN PRN Sodium Chloride 0 ml 05/19/22 06:00 Normal Saline 10 Ml Vial IJ 06/17/22 23:59 DIRECTED PRN Sterile Water 0 ml 05/19/22 06:00 Water,Injection,Sterile 10 Ml Vial IJ 06/17/22 23:59 DIRECTED PRN PFSH Active Problems Active Problems: Problem Status Onset Code Screening for colon cancer Z12.11 Rhinitis J31.0 Dysuria R30.0 Colorectal polyp detected on colonoscopy ~04/16/18 K63.5 Atrophic vaginitis 12/04/12 N95.2 Chronic rhinitis 02/13/14 J31.0 Lichen sclerosus et atrophicus 04/05/11 L90.0 Malignant neoplasm of upper-outer quadrant of right breast in female, estrogen receptor negative 05/26/17 C50.411, Z17.1 Invasive ductal carcinoma of right breast 10/01/15 C50.911 Cellulitis, leg L03.119 Neutropenic fever D70.9, R50.81 Medical History Medical History Adenomatous colon polyp 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 RIGHT Chronic rhinitis Surgical History Surgical History Breast, Lumpectomy (09/23/15) History of colonoscopy with polypectomy (~04/17/18) Repair, Rotator Cuff L shoulder 2009 Tobacco Smoking/Tobacco Use Status: Never Alcohol Alcohol Intake: current Alcohol intake frequency: a few times a week Alcohol type: wine Substance Use Substance use: Never Substance use type: does not use Prental History History 2 Para 2 Hx # Term Pregnancies Multiple births Hx # Pregnancies Ectopic pregnancies AB induced Hx Number of Living Children AB spontaneous Vital Signs and Lab Results Vital Signs Most Recent Vital Signs in EMR: Most Recent Vital Signs Temp Pulse Resp BP Pulse Ox 36.5 C 61 16 120/68 99 05/19/22 13:00 05/19/22 13:00 05/19/22 13:00 05/19/22 13:00 05/19/22 13:00 Lab Results Blood Type / Crossmatch: No Data to Display Complete Blood Count: No Data to Display Complete Metabolic Panel: No Data to Display Liver Function Panel: No Data to Display Coagulation Panel: No Data to Display Cardiac Panel: No Data to Display Arterial Blood Gas: No Data to Display Venous Blood Gas: No Data to Display Pancreas Panel: No Data to Display Thyroid Panel: No Data to Display Infectious Disease: No Data to Display Blood Cultures: No Data to Display Toxicology Panel: No Data to Display Imaging and Studies Imaging and Studies Study information below may be from another EMR and interpreted by another provider. Please see original notes in EMR for more complete details. Echocardiogram Summary: Left ventricle: The cavity size was normal. Wall thickness was increased in a pattern of mild LVH. Systolic function was normal. The estimated ejection fraction was 55-60%. Wall motion was normal; there were no regional wall motion abnormalities. Diastolic parameters were normal. Aortic valve: Trileaflet; normal thickness leaflets. Mobility was not restricted. Doppler: Transvalvular velocity was within the normal range. There was no stenosis. There was no regurgitation. Valve area (VTI): 2.4cm^2. Indexed valve area (VTI): 1.5cm^2/m^2. Valve area (Vmax): 2.4cm^2. Indexed valve area (Vmax): 1.5cm^2/m^2. Aorta: Aortic root: The aortic root was normal in size. Ascending aorta: The ascending aorta was normal in size. Mitral valve: Structurally normal valve. Mobility was not restricted. Doppler: Transvalvular velocity was within the normal range. There was no evidence for stenosis. There was mild regurgitation. Valve area by pressure half-time: 3.2cm^2. Indexed valve area by pressure half-time: 2cm^2/m^2. Peak gradient (D): 3.2mm Hg. Left atrium: The atrium was normal in size. Right ventricle: The cavity size was normal. Wall thickness was normal. Systolic function was normal. Pulmonic valve: Doppler: Transvalvular velocity was within the normal range. There was no evidence for stenosis. There was trivial regurgitation. Peak gradient (S): 2.1mm Hg. Tricuspid valve: Structurally normal valve. Doppler: Transvalvular velocity was within the normal range. There was no evidence for stenosis. There was trivial regurgitation. Pulmonary artery: Pulmonary systolic pressure was within the normal range, in the range of 25mm Hg to 30mm Hg. Right atrium: The atrium was normal in size. Pericardium: There was no pericardial effusion. Systemic veins: Inferior vena cava: Well visualized. The vessel was normal in size. Baseline ECG: Normal sinus rhythm. Anesthesia Assessment and Plan Anesthesia History Personal History: No History of Anesthesia Complications Family History: No Family History of Anesthesia Complications Exercise Tolerance Exercise Tolerance: Metabolic Equivalents>4 Pertinent Negatives Pertinent Negatives: No Symptoms of GERD Cardiac & Pulmonary Exam Cardiac Exam: Normal S1/S2 Heart Sounds Pulmonary Exam: Clear Bilateral Breath Sounds Implantable Cardiac Device Does patient have a Pacemaker or an ICD?: No Airway Exam Known Difficult Airway: No Mallampati Class: 2 Mouth Opening: Normal (> 3cm) Thyromental Distance: Greater than 3 cm Neck Range of Motion: Full ROM Neck Circumference: Normal Teeth Condition: Normal Dentition ASA Classification ASA Score: ASA 2 Emergency Case?: No NPO Status NPO Status: NPO Clears >2 hours, Solids >8 hours Anesthesia Plan Resuscitation Status: Full Code Anesthesia Technique: General Anesthesia Airway Planned: Natural Airway Monitors Used: Standard Monitors
[2022-05-19 13:55] VITALS: BMI 20.5
[2022-05-19] MEDS: Lactated Ringers 1,000 ML 80 ML IV (13:55)
[2022-05-19 14:45] VITALS: BP 104/70; PULSE 75; RESP 16; TEMP 36.5; O2SAT 98
--- NOTE | 2022-05-19 15:09 | W.ANESPOSTOP ---
Postoperative Evaluation Date, Time and Location Date Performed: 05/19/22 Time Performed: 15:09 Patient Location: Day Surgery Unit Vital Signs Most Recent Imported Vital Signs: Most Recent Vital Signs Temp Pulse Resp BP Pulse Ox 36.5 C 75 16 104/70 98 05/19/22 14:49 05/19/22 14:49 05/19/22 14:49 05/19/22 14:49 05/19/22 14:49 Pain Score Most Recent Pain Score: Most Recent Pain Score Pain Level 0 05/19/22 14:49 Assessment Mental Status: Awake (Alert & Oriented to Patient Baseline) Airway and Respiratory Function: Patent airway with normal (patient baseline) respiratory exam Cardiovascular Function: Hemodynamically Stable Hydration Status: Adequately Hydrated Nausea & Vomiting: No Nausea or Vomiting Pain: Pt. Denies Any Pain Peripheral Nerve Block: Patient did not receive a nerve block
[2022-05-19 15:11] VITALS: BP 134/80; PULSE 65; RESP 16; TEMP 36.2; O2SAT 99
== END 2022-05-19 15:35 | disposition home or self-care (01) ==
PROVIDERS: PCP Nurse Practitioner Family; Visit Provider Surgery
PROC: 0DJD8ZZ Inspection of Lower Intestinal Tract, Via Natural or Artificial Opening Endoscopic (ICD-10-PCS; CPT 45378; principal; 2022-05-19 14:45)
DX: Z12.11 Encounter for screening for malignant neoplasm of colon (principal); Z86.010 Personal history of colon polyps
CPT/HCPCS: G0105

== ENCOUNTER 2022-06-23 02:33 | Outpatient (CLI) | payer MEDICARE, SELFPAY ==
--- NOTE | 2022-06-23 07:30 | DI.MAMMO_ITS ---
Exam(s) MG MAMMO SCREENING 60 MIN DUR EXAM: MG MAMMO SCREENING 60 MIN DUR CLINICAL HISTORY: breast cancer screening,personal h/o breast ca,z17.1,z12.39.c50.411 TECHNIQUE: Mammograms were interpreted according to the usual protocol including computer analysis w [id number] CAD system, tomosynthesis and C-view imaging. COMPARISON: 2012 through 2016 FINDINGS: The breasts are composed of scattered fibroglandular densities, Breast Density category B. No suspicious masses or suspicious microcalcifications are seen. Scarring related to lumpectomy is a gain noted in the upper outer quadrant the right breast. A biopsy marker is also present in the uppe r outer quadrant. A coarse calcification is again noted near the biopsy site likely related to fat n ecrosis. No skin thickening or abnormal axillary lymph nodes are seen. There has been no significant change from prior exams. IMPRESSION: BI-RADS Cat 2 - Benign Findings Yearly screening mammography is recommended. Breast Density - Category B, scattered fibroglandular densities. A negative radiographic report should not delay biopsy if a dominant or clinically suspicious mass is present. Up to ten percent of cancers are not identified on mammography. A negative report may reinforce clinical impression. Adenosis and dense breasts may obscure an underlying neoplasm. False positive reports average 6 to 10%. Patient will receive a letter notifying them of these results.
== END 2022-06-23 02:53 ==
LOC: DI 02:33
PROVIDERS: PCP Nurse Practitioner Family; Visit Provider Nurse Practitioner Women's Health
DX: C50.411 Malignant neoplasm of upper-outer quadrant of right female breast (principal); Z12.31 Encounter for screening mammogram for malignant neoplasm of breast; Z17.1 Estrogen receptor negative status [ER-]
CPT/HCPCS: 77063; 77067

== ENCOUNTER 2022-09-15 14:10 | Outpatient (REF) | payer MEDICARE, SELFPAY | END 2022-09-15 14:11 | disposition home or self-care (01) | LOC: NCHCN 14:10 | PROVIDERS: PCP Nurse Practitioner Family; Visit Provider Nurse Practitioner Family | DX: Z00.00 Encounter for general adult medical examination without abnormal findings (principal); R39.9 Unspecified symptoms and signs involving the genitourinary system; M85.80 Other specified disorders of bone density and structure, unspecified site; M19.049 Primary osteoarthritis, unspecified hand; H81.10 Benign paroxysmal vertigo, unspecified ear; C50.911 Malignant neoplasm of unspecified site of right female breast; J31.0 Chronic rhinitis; G47.00 Insomnia, unspecified | CPT/HCPCS: 87086 ==

== ENCOUNTER → 2023-08-15 03:00 | Outpatient (CLI) | payer MEDICARE, SELFPAY ==
--- NOTE | 2023-08-15 | DI.MAMMO_ITS ---
Exam(s) MG MAMMO SCREENING 60 MIN DUR EXAM: MG MAMMO SCREENING 60 MIN DUR CLINICAL HISTORY: SCREENING, PERSONAL HX BREAST CANCER, Z85.3 TECHNIQUE: Bilateral full field digital CC and MLO mammographic images were obtained with 3D tomosyn thesis and utilizing computer aided detection (CAD). COMPARISON: Available for comparison. FINDINGS: Masses/Architectural Distortion: Findings of a prior right lumpectomy are again seen. No suspicious non masses are seen. Microcalcifications: No suspicious pleomorphic-type are seen. Skin Thickening/Nipple Retraction: None. IMPRESSION: 1. No significant interval change with no specific features of malignancy noted. 2. Unless there is more urgent need, screening mammography is recommended, as per [place] [employer] guidelines. 3. Findings were discussed with the patient on the date of the examination. BI-RADS Category 2 - Benign Findings Breast Density - Category B - Scattered areas of fibroglandular density Breast density category C or D implies that the patient has dense breast tissue. Dense breast tissue is very common and is not abnormal but dense breast tissue can make it harder to find cancer on a ma mmogram. Also, dense breast tissue may increase their breast cancer risk. This information about the result of the mammogram report was provided to the patient to raise their awareness. Use this report when you speak with the patient about their risks for breast cancer, which includes their family hist ory. At that time, you may recommend for more screening tests (Ultrasound or MRI) as they might be us eful based on their risk. A negative radiographic report should not delay biopsy if a dominant or clinically suspicious mass is present. Up to ten percent of cancers are not identified on mammography. A negative report may reinforce clinical impression. Adenosis and dense breasts may obscure an underlying neoplasm. False positive reports average 6 to 10%. Patient will receive a letter notifying them of these results.
== END ==
PROVIDERS: PCP Nurse Practitioner Family; Visit Provider Nurse Practitioner Family
DX: Z85.3 Personal history of malignant neoplasm of breast (principal); Z12.31 Encounter for screening mammogram for malignant neoplasm of breast
CPT/HCPCS: 77063; 77067

== ENCOUNTER 2024-10-09 01:26 | Outpatient (CLI) | payer MEDICARE, SELFPAY ==
--- NOTE | 2024-10-09 07:15 | DI.MAMMO_ITS ---
Exam(s) MG MAMMO SCREENING 60 MIN DUR EXAM: MG MAMMO SCREENING 60 MIN DUR CLINICAL HISTORY: breast cancer screening, personal hx breast cancer,z12.39,c50.411,z17.1 TECHNIQUE: Bilateral full field digital CC and MLO mammographic images were obtained with 3D tomosynthesis and utilizing computer aided detection (CAD). COMPARISON: Comparison is made with prior examinations. FINDINGS: Masses/Architectural Distortion: No suspicious masses or areas of architectural distortion are present. There are stable postsurgical changes of a right lumpectomy. Microcalcifications: No suspicious pleomorphic-type are seen. Skin Thickening/Nipple Retraction: None. IMPRESSION: 1. No significant interval change with no specific features of malignancy noted. 2. Unless there is more urgent need, screening mammography is recommended, as per [place] [employer] guidelines. 3. Findings were discussed with the patient on the date of the examination. BI-RADS Category 2 - Benign Findings Breast Density - Category B - There are scattered areas of fibroglandular density. Breast density Category C or D implies that the patient has dense breast tissue. Dense breast tissue can make it harder to find cancer on a mammogram. Dense breast tissue is also associated with an increased risk of breast cancer. This information about the result of the mammogram report was provided to the patient to raise their awareness. Use this report when you speak with the patient about their risks for breast cancer, which includes their family history. At that time, you may recommend additional screening tests (Ultrasound or MRI) as these tests may add significant information. A negative radiographic report should not delay biopsy if a dominant or clinically suspicious mass is present. Up to ten percent of cancers are not identified on mammography. A negative report may reinforce clinical impression. Adenosis and dense breasts may obscure an underlying neoplasm. False positive reports average 6 to 10%. Patient will receive a letter notifying them of these results.
== END 2024-10-09 01:46 ==
LOC: DI 01:26
PROVIDERS: PCP Nurse Practitioner Family; Visit Provider Nurse Practitioner Women's Health
DX: C50.411 Malignant neoplasm of upper-outer quadrant of right female breast (principal); Z17.1 Estrogen receptor negative status [ER-]; Z12.31 Encounter for screening mammogram for malignant neoplasm of breast
CPT/HCPCS: 77063; 77067

== ENCOUNTER 2024-11-25 07:32 | Outpatient (CLI) | payer MEDICARE, SELFPAY ==
[2024-11-25 08:11] LABS: Anion Gap 5.2 mmol/L (3-11); CO2 29.8 mmol/L (21.0-32.0); Calcium 9.3 mg/dL (8.5-10.1); Chloride 105 mmol/L (98-107); Estimated GFR 79.22 (mL/min/1.73m2); Glucose 99 mg/dL (74-106); Potassium 4.1 mmol/L (3.5-5.1); Sodium 140 mmol/L (136-145)
[2024-11-25 08:46] LABS: BUN 19 mg/dL (7-18)
[2024-11-26 15:29] LABS: Calculated LDL 141 mg/dL (<100); Cholesterol 247 mg/dL (<200); HDL Cholesterol 95 mg/dL (>or=50); Triglyceride 59 mg/dL (<150); Vitamin D 25 Total 57 ng/mL (30-100)
== END 2024-11-25 07:33 | disposition home or self-care (01) ==
LOC: LBO 07:32
PROVIDERS: PCP Nurse Practitioner Family; Visit Provider Nurse Practitioner Family
DX: E78.5 Hyperlipidemia, unspecified (principal); M85.80 Other specified disorders of bone density and structure, unspecified site
CPT/HCPCS: 36415; 80048; 80061; 82306